=== PATIENT | female | born 1980 ===

== ENCOUNTER 2019-04-03 08:25 | Inpatient (IN) | payer OTHER ==
[2019-04-03] MEDS ORDERED: LACTATED RINGERS 1,000 ML IV SCH ×2 (09:00→10:00)
[2019-04-03] MEDS ORDERED: fentaNYL 100 MCG/2 ML INJ IV PRN (09:03)
[2019-04-03] MEDS ORDERED: LIDOCAINE (2%) 20 MG/1 ML VIAL 20 ML MDV INFILTRATI ONE (09:03)
[2019-04-03] MEDS ORDERED: ePHEDrine SULFATE 50 MG/1 ML INJ IV PRN (09:03)
[2019-04-03] MEDS ORDERED: TERBUTALINE 1 MG/1 ML INJ SUB-Q PRN (09:03)
--- NOTE | 2019-04-03 09:08 | History and Physical Report ---
History of Present Illness Date of examination: 04/03/19 Date of admission: 04/03/19 08:51 Chief complaint: Contractions History of present illness: 38 year old presents in active labor with advanced cervical dilation. Patient denies leaking of fluid or vaginal bleeding. Patient received care at [facility] and she brings records with her. LMP 07/14/18. EDC 04/20/19. significant for the following: AMA, abnormal quad screen (increased risk for Down Syndrome) with normal cell free DNA test; elevated one hour sugar test (187) with one abnormal value on both 3 hour OGTTs (202 in September and 190 in December), anemia (supplemented with iron), history of gestational diabetes with the past 2 pregnancies, umbilical hernia. labs are as follows: O+, antibody screen negative, pap smear normal, rubella immune, hepatitis B surface antigen negative, HIV negative, RPR nonreactive, gonorrhea negative, chlamydia negative, quad screen positive (increased risk for DS), normal cell free DNA, 1 hour sugar test 187 (2 separate 3 hour OGTTs had an abnormal value on the 1 hour result), GBS negative. 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 denies: smoking, alcohol abuse, prescription drug abuse, IV drug use - Obstetrical History Expected Date of Delivery: 04/20/19 Actual Gestation: 37 Week(s) 4 Day(s) : 4 Para: 3 Hx # Term Pregnancies: 3 Number of Pregnancies: 0 Spontaneous Abortions: 0 Induced : 0 Number of Living Children: 3 Medications and Allergies Allergies Allergy/AdvReac Type Severity Reaction Status Date / Time ibuprofen Allergy Mild Itching Verified 04/03/19 09:08 Home Medications Medication Instructions Recorded Confirmed Last Taken Type No Known Home Medications [No 04/03/19 04/03/19 Unknown History Reported Home Medications] Active Meds: Active Medications Ephedrine Sulfate (Ephedrine Sulfate) 10 mg IV Q2M PRN PRN Reason: Hypotension Lactated Ringer's (Lactated Ringers) 1,000 mls @ 125 mls/hr IV DIRECT SHELLEY Lidocaine (Xylocaine 2%) 20 ml INFILTRATI ONCE ONE Stop: 04/03/19 09:04 Terbutaline Sulfate (Brethine) 0.25 mg SUB-Q ONCE PRN PRN Reason: Hyperstimulation/Hypertonicity Review of Systems All systems: negative (contractions) - Physical Exam Abdomen: Positive: normal appearance, soft. Negative: distention, tenderness, guarding, rigidity Genitourinary (Female): Positive: normal external genitalia, normal perenium. Negative: perineal/vulvar lesions (no lesions seen on careful exam with bright light upon admission) Vagina: Positive: normal moisture Uterus: Positive: enlarged. Negative: tender Anus/Rectum: Positive: normal perianal skin Extremities: Positive: normal. Negative: tenderness, edema - Obstetrical FHR: category 2 Uterine Contraction Monitor Mode: External Cervical Dilatation: 8 Cervical Effacement Percentage: 100 station: -2 Uterine Contraction Pattern: Regular Uterine Contraction Intensity: Moderate Results Result Diagrams: 04/03/19 09:23 All other labs normal. Assessment and Plan A: at 37 weeks, 4 days gestation. GBS negative. Active labor with advanced cervical dilation. Abnormal glucose test during ; random blood sugar on admission 95. P: Admit. Continuous EFM. US for EFW. Anticipate vaginal .
[2019-04-03 10:15] LABS: Basophils % (Auto) 0.3 % (0.0-1.8); Eosinophils % (Auto) 0.3 % (0.0-4.3); Hematocrit 29.8 % (30.3-42.9); Hemoglobin 9.6 gm/dl (10.1-14.3); Lymphocytes # (Auto) 0.9 K/mm3 (1.2-5.4); Lymphocytes % (Auto) 11.4 % (13.4-35.0); Mean Corpuscular HGB Conc 32 % (30-34); Mean Corpuscular Volume 84 fl (79-97); Monocytes # (Auto) 0.4 K/mm3 (0.0-0.8); Platelet Count 217 K/mm3 (140-440); Red Blood Count 3.56 M/mm3 (3.65-5.03); Red Cell Distribution Width 19.2 % (13.2-15.2)
[2019-04-03] MEDS ORDERED: LANOLIN/ZINC/DIMETHICONE (LANSINOH) 7 GM TP PRN (10:48)
[2019-04-03] MEDS ORDERED: WITCH HAZEL/ GLYCERIN PAD TP PRN (10:48)
[2019-04-03] MEDS ORDERED: MAGNESIUM HYDROXIDE (MOM) ORAL LIQD UDC PO PRN (10:48)
--- NOTE | 2019-04-03 10:56 | Procedure Note ---
OB Delivery Note - Delivery Date of Delivery: 04/03/19 Surgeon: MOLLY MALONEY Estimated blood loss: other (250 cc) - Vaginal Delivery presentation: vertex Delivery position: OA Intrapartum events: meconium, precipitous labor- <3hr Delivery induction: none Delivery monitor: external FHT, external uterine Route of delivery: Delivery placenta: spontaneous Delivery cord: 3 umbilical vessels, other (body and arm cord) Episiotomy: none Delivery laceration: 1st degree Delivery repair: vicryl Anesthesia: local Delivery comments: Spontaneous vaginal delivery at 10:24 of liveborn female infant weighing 8 lb. 1 oz. over first degree perineal laceration with apgars of 8/9. Thin meconium stained amniotic fluid. NICU present for delivery. Umbilical cord wrapped around baby's body and left arm. Baby cried vigorously just as 3 vessel cord was double clamped and cut. Baby taken to radiant warmer to be evaluated by NICU team and for further suctioning. Cord blood obtained. Spontaneous delivery of intact placenta and membranes at 10:27. EBL 250 cc. Pitocin to IV fluids after delivery of placenta. Fundus firm and midline. First degree perineal laceration repaired with 2-0 vicryl. No other lacerations noted. Vaginal sweep negative. Sponge count correct. Mother and baby stable.
[2019-04-03] MEDS: OXYTOCIN 20 UNIT/1000ML DRIP 20 UNITS/1,000 ML BAG IV SCH ×2 (11:10→12:54)
[2019-04-03] MEDS: HYDROcodone/ACETAMINOPHEN 5-325 MG TAB PO PRN (19:26)
[2019-04-03] MEDS: DOCUSATE SODIUM 100 MG CAP PO SCH (21:47)
[2019-04-03] MEDS: FERROUS SULFATE 325 MG TAB PO SCH (21:48)
[2019-04-03 23:32] LABS: Hemoglobin 8.4 gm/dl (10.1-14.3)
[2019-04-04] MEDS: HYDROcodone/ACETAMINOPHEN 5-325 MG TAB PO PRN (05:25)
[2019-04-04] MEDS ORDERED: IRON DEXTRAN COMPLEX 100 MG/2 ML INJ IM NR ×2 (10:04→17:00)
--- NOTE | 2019-04-04 10:04 | Progress Note ---
Assessment and Plan - Patient Problems (1) Status post normal vaginal delivery Current Visit: Yes Status: Acute Plan to address problem: PPD 1 - stable Continue routine orders Discharge to home later today Follow up at [facility] as needed or in 6 weeks for exam (2) Anemia due to blood loss, acute Current Visit: Yes Status: Acute Plan to address problem: Asymptomatic On Ferrous sulfate but pt reports intolerance to iron pills (nausea/vomiting) which leads to non-compliance Infed offered, pt agreed with plans of care Subjective - Subjective Date of service: 04/04/19 Principal diagnosis: PPD #1, s/p Interval history: see H&P and OB Delivery Procedure Note Patient reports: appetite normal, voiding normally, pain well controlled, ambulating normally, no dizzy ambulation Freer: doing well, bottle feeding Objective - Vital Signs Latest vital signs: Vital Signs Temp Pulse Resp BP BP Pulse Ox 04/04/19 08:05 97.9 F 56 L 20 97/43 04/04/19 00:43 98.5 F 57 L 16 98/53 99 04/03/19 20:44 99 F 67 20 116/56 97 04/03/19 17:30 99.2 F 79 18 118/60 98 04/03/19 13:05 98.4 F 64 18 109/46 98 04/03/19 12:28 68 109/53 04/03/19 12:13 101/61 04/03/19 12:00 97.8 F 57 L 18 116/57 04/03/19 11:59 57 L 116/57 04/03/19 11:28 61 111/60 04/03/19 11:13 121/73 04/03/19 10:58 55 L 117/62 04/03/19 10:43 58 L 112/56 04/03/19 10:29 69 125/68 04/03/19 10:10 65 124/79 Intake and Output 04/03/19 04/04/19 04/04/19 23:59 07:59 15:59 Intake Total 960 240 120 Balance 960 240 120 Intake: Oral 240 120 Intake, Free Water 720 240 Other: Total, Intake Amount 240 120 # Voids Void 1 2 1 - Exam Cardiovascular: Present: Regular rate Abdomen: Present: normal appearance, soft Vulva: both: laceration/episiotomy (healing well) Uterus: Present: normal, firm, fundal height at umbilicus Extremities: Present: normal Comments: small lochia - Labs Labs: Abnormal lab results 04/03/19 04/03/19 Range/Units 09:23 23:11 RBC 3.56 L (3.65-5.03) M/mm3 Hgb 9.6 L 8.4 L (10.1-14.3) gm/dl Hct 29.8 L 26.0 L (30.3-42.9) % MCH 27 L (28-32) pg RDW 19.2 H (13.2-15.2) % Lymph % (Auto) 11.4 L (13.4-35.0) % Lymph # 0.9 L (1.2-5.4) K/mm3 Seg Neutrophils % 83.0 H (40.0-70.0) %
--- NOTE | 2019-04-04 10:09 | Discharge Summary ---
Providers - Providers Date of Admission: 04/03/19 08:51 Date of discharge: 04/04/19 Attending physician: ALETHEA JOHNSTON MD Primary care physician: ALETHEA JOHNSTON MD Hospitalization Reason for admission: active labor, IUP at term Delivery: Episiotomy: none Laceration: none Other procedures: none complications: none Discharge diagnosis: IUP at term delivered [place] baby: female Hospital course: Uncomplicated Condition at discharge: Stable Disposition: SD-01 TO HOME OR SELFCARE - Discharge Diagnoses (1) Status post normal vaginal delivery Status: Acute (2) Anemia due to blood loss, acute Status: Acute Comment: Asymptomatic Eat iron-rich foods Plan - Provider Discharge Summary Activity: routine, no sex for 6 weeks, no heavy lifting 4 weeks, no strenuous exercise Diet: routine Instructions: routine Additional instructions: [] Smoking cessation referral if applicable(refer to patient education folder for contact #) [] Refer to [facility]'s [facility] Booklet Call your doctor immediately for: * Fever > 100.5 * Heavy vaginal bleeding ( >1 pad per hour) * Severe persistent headache * Shortness of breath * Reddened, hot, painful area to leg or breast * Drainage or odor from incision. * Keep incision clean and dry at all times and follow doctor's instructions regarding bathing/showering - Follow up plan Follow up: ALETHEA JOHNSTON MD [Primary Care Provider] - 6 Weeks (Follow up at [facility] as needed or in 6 weeks for exam)
[2019-04-04] MEDS: DOCUSATE SODIUM 100 MG CAP PO SCH (16:44)
[2019-04-04] MEDS: FERROUS SULFATE 325 MG TAB PO SCH (16:44)
[2019-04-04 17:12] VITALS: BP 110/82
== END 2019-04-04 17:05 | disposition home or self-care (01) | DRG 806 ==
LOC: TRG 08:25 → LD 08:51 → TRG 08:51 → OB 13:45
PROVIDERS: ADMIT Obstetrics & Gynecology; ATTEND Obstetrics & Gynecology
PROC: 10E0XZZ Delivery of Products of Conception, External Approach (ICD-10-PCS; principal; 2019-04-03)
PROC: 0HQ9XZZ Repair Perineum Skin, External Approach (ICD-10-PCS; 2019-04-03)
DX: O62.3 Precipitate labor (principal); D62 Acute posthemorrhagic anemia; Z37.0 Single live birth; O99.02 Anemia complicating childbirth; O77.0 Labor and delivery complicated by meconium in amniotic fluid; O69.89X0 Labor and delivery complicated by other cord complications, not applicable or unspecified; O70.0 First degree perineal laceration during delivery; Z3A.37 37 weeks gestation of pregnancy
CPT/HCPCS: 36415; 82962; 83036; 85014; 85018; 85025; 85027; 86592; 86850; 86900; 86901; G0378; J1750; J2590; J3010; J7120